=== PATIENT | female | born 2000 | race African-American/Black ===

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

== ENCOUNTER 2019-04-12 17:53 | Emergency (ER) | payer OTHER ==
[~2019-04-12] VITALS: Ht 172.7 cm; Wt 52.2 kg
[2019-04-12 18:11] VITALS: BP 123/72
[2019-04-12] MEDS ORDERED: IBUPROFEN 600 MG TAB PO ONE (21:00)
== END 2019-04-12 21:17 | disposition home or self-care (01) ==
LOC: ER 17:53 → EDSEX 17:53 → EDBD 17:53 → ER 21:15
DX: R51 Headache (principal); V98.8XXA Other specified transport accidents, initial encounter; Y93.89 Activity, other specified; Y92.488 Other paved roadways as the place of occurrence of the external cause; Y99.8 Other external cause status